=== PATIENT | male | born 2000 | race Native Hawaiian/Other Pacific Islander ===

== ENCOUNTER 2021-06-17 11:28 | Outpatient (CLI) | payer BC, OTHER ==
[~2021-06-17] VITALS: Ht 190.5 cm; Wt 104.3 kg
== END 2021-06-17 19:03 | disposition home or self-care (01) ==
LOC: INF 11:28
PROVIDERS: ATTEND Family Medicine
DX: Z23 Encounter for immunization (principal); U07.1 COVID-19
CPT/HCPCS: 96365; M0244